=== PATIENT | male | born 1945 | race Caucasian/White ===

== ENCOUNTER 2020-02-03 07:15 | Emergency (ER) | payer OTHER, MEDICARE ==
[2020-02-03 07:30] VITALS: BP 133/66
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
== END 2020-02-03 09:10 | disposition home or self-care (01) ==
LOC: ER 07:15
DX: S20.211A Contusion of right front wall of thorax, initial encounter (principal); S50.311A Abrasion of right elbow, initial encounter; M79.10 Myalgia, unspecified site; V43.62XA Car passenger injured in collision with other type car in traffic accident, initial encounter; I10 Essential (primary) hypertension
CPT/HCPCS: 71046; 99283